=== PATIENT | female | born 1970 | race Caucasian/White ===

== ENCOUNTER 2018-05-08 08:51 | Day surgery (SDC) | payer OTHER ==
[~2018-05-08] VITALS: Ht 160 cm; Wt 85.3 kg
[~2018-05-08 08:51] MED LIST: COMPLEX B-1001 EACH PO; VITAMIN D5000 UNI1 PO
[2018-05-08 09:43] VITALS: BP 131/80
[2018-05-08 15:15] VITALS: BP 128/76
[2018-05-08 15:41] VITALS: BP 120/71
== END 2018-05-08 15:48 | disposition home or self-care (01) ==
LOC: SDC 08:51
DX: R10.31 Right lower quadrant pain (principal); N80.3 Endometriosis of pelvic peritoneum; Z90.711 Acquired absence of uterus with remaining cervical stump; N73.6 Female pelvic peritoneal adhesions (postinfective); N83.291 Other ovarian cyst, right side; Z68.34 Body mass index [BMI] 34.0-34.9, adult; E66.09 Other obesity due to excess calories; Z80.0 Family history of malignant neoplasm of digestive organs; Z82.49 Family history of ischemic heart disease and other diseases of the circulatory system; Z83.3 Family history of diabetes mellitus; Z83.49 Family history of other endocrine, nutritional and metabolic diseases
CPT/HCPCS: 86850; 86900; 86901; 88305; J0131; J0330; J0690; J1100; J1644; J1885; J2250; J2405; J2710; J3010; J7643; Q0175